=== PATIENT | female | born 1955 | race Caucasian/White ===

== ENCOUNTER 2024-02-18 16:33 | Emergency (ER) | payer MEDICARE, SELFPAY ==
--- NOTE | ~2024-02-18 | XR_ITS ---
EXAMINATION: XR CHEST CLINICAL INFORMATION: Chest pain. COMPARISON: October 19, 2013. TECHNIQUE: Frontal view of the chest was obtained. FINDINGS: No significant abnormality is noted involving the heart, lungs, mediastinum, bony thorax or soft tissues. XR/XR chest 1V IMPRESSION: Unremarkable examination. Electronically signed by: Bobby Layne MD 02/18/2024 11:15 PM EDT RP
[2024-02-18 16:42] VITALS: BP 130/70; PULSE 75; RESP 16; TEMP 35.7; O2SAT 97; BMI 29.7
--- NOTE | 2024-02-18 16:44 | ECG_ITS ---
Test Reason : CHEST PAIN Blood Pressure : / mmHG Vent. Rate : 073 BPM Atrial Rate : 073 BPM P-R Int : 172 ms QRS Dur : 084 ms QT Int : 398 ms P-R-T Axes : 034 -09 -01 degrees QTc Int : 438 ms Normal sinus rhythm Minimal voltage criteria for LVH, may be normal variant ( R in aVL ) Borderline ECG When compared with ECG of 19-OCT-2013 21:01, No significant change was found Referred By: Slick Andino Electronically Signed By:GANESH CONKLIN
--- NOTE | 2024-02-18 16:46 | ED_ITS ---
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 She states it hurts to move and touch the area. No recent infections or colds. It is worse with movement and touching the area. No swelling or rash. MD complaint: chest wall pain Onset (ago): month(s) (1) Location: chest Radiation: non-radiation Severity: moderate Quality: aching Pain Consistency: intermittent Relieving factors: immobilization Exacerbating factors: movement and other (palpations) Associated symptoms: denies other symptoms Treatments prior to arrival: other Related Data Previous Rx's ?Medication ?Instructions ?Recorded lidocaine 5 % topical patch 1 patch topical DAILY #30 ea 02/18/24 (Tridacaine) Allergies Allergy/AdvReac Type Severity Reaction Status Date / Time Sulfa (Sulfonamide Allergy Intermediate RASH Verified 02/18/24 16:46 Antibiotics) [SULFA(SULFONAMIDE ANTIBIOTICS)] ondansetron [From ZOFRAN] Allergy Mild SHAKING Verified 02/18/24 16:46 From COMPAZINE Allergy Unknown UNKNOWN Uncoded 02/18/24 16:46 STEROID INJECTION Allergy Unknown UNKNOWN Uncoded 02/18/24 16:46 Review of Systems 2 Review of Systems: Constitutional : No Weight loss, No Fever, No Chills ENT/Mouth : No sore throat, No Rhinorrhea Eyes: No Eye Pain, No Swelling Cardiovascular : pos Chest Pain, no SOB, no Dyspnea on Exertion, No Orthopnea, No Edema, No Palpitations Respiratory : No Cough, No Sputum Gastrointestinal : no Nausea, No Vomiting, No Diarrhea, No abdominal Pain, No Hematochezia, No Melena Genitourinary : No Dysuria, No Urinary Frequency Musculoskeletal : No joint pain, No Myalgias, No Joint Swelling Skin : No Skin Lesions, No rash Neuro : No Weakness, No Numbness, No Dizziness, No Headache Psych : No Anxiety/Panic, No Depression All other systems reviewed and are negative [facility] Past Medical History Attestation statement: The following information was validated with the patient. Source: old records reviewed Medical History Allergies Social History Social History Smoked in Last 30 Days: No Use of substances other than those prescribed or required for medical reasons: No Advance Directives: No Advance Directives Information Provided: No Do you have a plan to hurt others: No Plan Physical Exam ED Vital Signs: Vital Signs - 24 hr 02/18/24 16:42 02/18/24 21:05 02/18/24 21:49 Temperature 96.2 F L 98.3 F 97.6 F Pulse Rate 75 76 64 Respiratory Rate 16 16 16 Blood Pressure 130/70 125/80 117/75 Pulse Oximetry 97 98 97 Oxygen Delivery Method Room Air Room Air Room Air 02/18/24 21:50 Temperature 97.6 F Pulse Rate 64 Respiratory Rate 16 Blood Pressure 117/75 Pulse Oximetry 97 Oxygen Delivery Method Room Air BMI result Body Mass Index 29.7 Appearance: Alert. Oriented X3. No acute distress. Eyes: Pupils equal, round and reactive to light. ENT: Pharynx normal. Neck: Normal inspection. Neck supple. CVS: Normal heart rate and rhythm. Pulses normal. Chest: ttp along anterior chest wall reproduces pain Respiratory: No respiratory distress. Breath sounds normal. Abdomen: Soft and nontender. Skin: Skin warm and dry. Normal skin color. Normal skin turgor. Extremities: No lower extremity edema. No calf ttp Neuro: Oriented X 3. No motor deficit. No sensory deficit. Course Course Course Narrative: RME: Done by MILO Ruiz. 68-year-old female presents to ED for chest wall pain that is worse on movement of upper extremity and torso. Patient does a lot of upper extremity work and turning of upper extremity due to scalp to work. Patient denies any pleurisy, leg swelling, calf pain, coughing up blood, fever, or chills. Physical exam negative for lower extremity swelling, pitting edema, or calf pain. Positive chest wall tenderness on palpation and movement of torso and upper extremities. EKG labs x-ray ordered. Medications Administered Discontinued Medications Generic Name Dose Route Start Last Admin Trade Name Yecenia PRN Reason Stop Dose Admin Lidocaine 1 patch 02/18/24 21:30 02/18/24 21:41 Lidocaine 4 % Patch Adh..Patch TRANSDERMA 02/18/24 21:31 1 patch ONCE ONE Administration Protocol Medical Decision Making Medical Decision Making [facility] Narrative: 68 yo female with no sig PMH or risk factors for CAD reported here with chest wall injury and reproduceable chest wall pain at this time will need basic labs, EKG, and chest xray to evaluate for injury will start on pain patches. I do not suspect ACS, VTE, dissection she has localized reproduceable chest wall pain after injury. She has no resp distress or concern for infection. Differential Diagnosis Differential Diagnoses: The differential diagnosis associated with the presentation includes chest wall strain, rib contusion, rib fracture Admission/Observation Consideration of admission/observation: Escalation of care including admission/observation considered can be managed conservatively as outpatient Lab Data [facility] Lab Attestation statement: I reviewed the patient's lab results. 02/18/24 17:09 02/18/24 17:09 Labs: Lab Results 02/18/24 02/18/24 02/18/24 Range/Units 17:09 18:05 19:44 WBC 5.9 (4.8-10.8) X10*3/uL RBC 4.56 (4.20-5.50) X10*6/uL Hgb 13.9 (12.0-16.0) g/dl Hct 41.3 (37.0-47.0) % MCV 90.6 (80.0-98.0) fL MCH 30.5 (27.0-33.0) pg MCHC 33.7 (31.0-35.0) g/dl RDW 13.1 (11.0-16.0) % Plt Count 137 L (160-400) X10*3/uL MPV 11.5 (9.4-12.3) fL Immature Gran % (Auto) 0.3 (0.0-0.4) % Neut % (Auto) 53.8 (45-73) % Lymph % (Auto) 34.6 (20-40) % Rush % (Auto) 9.1 (2-11) % Eos % (Auto) 1.7 (0-4) % Baso % (Auto) 0.5 (0-2) % Lymph # (Auto) 2.1 (1.2-4.9) X10*3/uL Rush # (Auto) 0.5 (0.1-1.2) X10*3/uL Eos # (Auto) 0.1 (0.0-0.4) X10*3/uL Baso # (Auto) 0.0 (0.0-0.2) X10*3/uL Abs Immat Gran (auto) 0.02 (0.00-0.03) X10*3/uL Absolute Neuts (auto) 3.2 (2.0-8.3) x10*3/uL Absolute Nucleated RBC 0.000 (0.0-0.012) X10*3/uL Nucleated RBC % (auto) 0.0 (0.0-0.2) /100WBC PT 9.8 L (10.9-12.4) SEC INR 0.8 L (0.9-1.1) APTT 28.1 (26.0-36.8) SEC Sodium 140 (135-145) mmol/L Potassium 4.0 (3.3-5.1) mmol/L Chloride 110 H (96-108) mmol/L Carbon Dioxide 22 (22-29) mmol/L Anion Gap 12 (12-20) BUN 20 H (9-16) mg/dL Creatinine 0.86 (0.5-1.4) mg/dL Estim Creat Clear Calc 65.7 Estimated GFR > 60 Random Glucose 135 H (60-115) mg/dL Calcium 11.0 H (8.4-10.2) mg/dL Total Bilirubin 0.3 (0.0-1.0) mg/dL AST 19 (5-31) U/L ALT 18 (0-31) U/L Alkaline Phosphatase 86 (39-117) U/L Troponin I High Sens < 2.7 < 2.7 (<3.5-17.0) ng/L B-Natriuretic Peptide < 10 (<100) pg/mL Total Protein 6.9 (6.5-8.0) g/dL Albumin 4.3 (3.5-5.0) g/dL Independent Interpretation I performed an independent interpretation of an: EKG and Plain X-Ray Interpretation: Rate: 73 Rhythm: NSR [place]: left, LVH Normal P waves. Normal ABY. Normal QRS complex. ST T wave : normal no AV qTC: 438 prior studies: no acute ischemia The study has been interpreted contemporaneously by me. . Radiology Impression Discussion of test interpretation with radiology: I have reviewed the radiologist's reading. Discharge Plan Discharge Clinical Impression: Strain of chest wall Patient Disposition: Home, Self-Care Instructions: Muscle Strain (ED), Chest Wall Pain (ED) Additional Instructions: will call you with abnormal chest xray result return for any worsening symptoms or things such as fever, cough with sputum production increase in trouble breathing or any other concerns please take it easy for the next two weeks and limit lifting to 10lbs Prescriptions: New lidocaine [Tridacaine] 5 % adhesive patch,medicated 1 patch topical DAILY Qty: 30 0RF Rx Instructions: leave on most painful area for up to 12 hrs Interventions: ED Discharge Assessment Last Done: 02/18/24 21:50 Discharge Date/Time: 02/18/24 21:53 Print Language: Slovak
[2024-02-18 17:27] LABS: Hemoglobin 13.9 g/dl (12.0-16.0); Mean Corpuscular HGB Conc 33.7 g/dl (31.0-35.0); PLT CLUMP 1; Red Cell Distribution Width 13.1 % (11.0-16.0); SCAN SMEAR FLAG 1
[2024-02-18 17:28] LABS: Basophils Percent Auto 0.5 % (0-2); Eosinophils Absolute Auto 0.1 X10*3/uL (0.0-0.4); Eosinophils Percent Auto 1.7 % (0-4); Hematocrit 41.3 % (37.0-47.0); Imm Gran Abs Auto 0.02 X10*3/uL (0.00-0.03); Imm Gran Pct Auto 0.3 % (0.0-0.4); Lymphocytes Absolute Auto 2.1 X10*3/uL (1.2-4.9); Lymphocytes Percent Auto 34.6 % (20-40); Mean Corpuscular Hemoglobin 30.5 pg (27.0-33.0); Mean Corpuscular Volume 90.6 fL (80.0-98.0); Mean Platelet Volume 11.5 fL (9.4-12.3); Monocytes Absolute Auto 0.5 X10*3/uL (0.1-1.2); Monocytes Percent Auto 9.1 % (2-11); Neutrophils Absolute Auto 3.2 x10*3/uL (2.0-8.3); Neutrophils Percent Auto 53.8 % (45-73); Red Blood Count 4.56 X10*6/uL (4.20-5.50)
[2024-02-18 17:32] LABS: MANUAL DIFF FLAG NO; Platelet Count 137 X10*3/uL (160-400); White Blood Count 5.9 X10*3/uL (4.8-10.8)
[2024-02-18 17:37] LABS: Alanine Aminotransferase 18 U/L (0-31); Albumin Level 4.3 g/dL (3.5-5.0); Alkaline Phosphatase 86 U/L (39-117); Anion Gap 12 (12-20); Aspartate Amino Transferase 19 U/L (5-31); Bilirubin Total 0.3 mg/dL (0.0-1.0); Blood Urea Nitrogen 20 mg/dL (9-16); Carbon Dioxide 22 mmol/L (22-29); Chloride 110 mmol/L (96-108); Creatinine Clr Calc Pharmacy 65.7; Estimated Glomerular Filt Rate > 60; Glucose Random 135 mg/dL (60-115); Sodium 140 mmol/L (135-145); Total Protein 6.9 g/dL (6.5-8.0)
[2024-02-18 17:42] LABS: B Type Natriuretic Peptide < 10 pg/mL (<100)
[2024-02-18 17:52] LABS: Troponin-I High Sensitivity < 2.7 ng/L (<3.5-17.0)
[2024-02-18 18:20] LABS: INTERNATIONAL NORM RATIO 0.8 (0.9-1.1); Prothrombin Time 9.8 SEC (10.9-12.4)
[2024-02-18 18:23] LABS: Partial Thromboplastin Time 28.1 SEC (26.0-36.8)
[2024-02-18 20:22] LABS: Troponin-I High Sensitivity < 2.7 ng/L (<3.5-17.0)
[2024-02-18 21:05] VITALS: BP 125/80; PULSE 76; RESP 16; TEMP 36.8; O2SAT 98
[2024-02-18] MEDS: Lidocaine 4 % Patch ADH..PATCH 1 PATCH TRANSDERMA (21:41)
[2024-02-18 21:49] VITALS: BP 117/75; PULSE 64; RESP 16; TEMP 36.4; O2SAT 97
[2024-02-18 21:50] VITALS: BP 117/75; PULSE 64; RESP 16; TEMP 36.4; O2SAT 97
== END 2024-02-18 21:53 | disposition home or self-care (01) ==
PROVIDERS: Physician Assistant; Emergency Provider Emergency Medicine; PCP Nurse Practitioner Family
DX: R07.89 Other chest pain (principal); R06.02 Shortness of breath; Z79.899 Other long term (current) drug therapy
CPT/HCPCS: 36415; 71045; 80053; 83880; 84484; 85025; 85610; 85730; 93005; 99283; 99285

== ENCOUNTER 2024-02-20 00:56 | Emergency (ER) | payer MEDICARE, SELFPAY ==
[2024-02-20 00:59] VITALS: BP 129/79; PULSE 74; RESP 18; TEMP 37.1; O2SAT 97; BMI 33.3
--- NOTE | 2024-02-20 01:10 | PC.NURSE ---
pt from home a&ox4, respirations even and unlabored. pt reporting being seen here yesterday for similar problem. pt reports increased musculoskeletal chest pain, pt reports 1 week prior she had been moving something heavy and reports she thinks this is what caused it. pt reports she was discharged with lidocaine patches which did not work and now she is reporting worsening pain and unable to get in bed. upon pt entering room, pt shouting in pain when sitting.
--- NOTE | 2024-02-20 02:28 | ED_ITS ---
HPI - General Adult General Chief complaint: General Medical Stated complaint: muscle/chest discomfort was in ER yesterday Time Seen by Provider: 02/20/24 02:28 Source: patient Mode of arrival: ambulatory Limitations: no limitations History of Present Illness ED Provider: Dr. Colin HPI narrative: Patient states that she injured her chest moving her sculptures around. She was seen in the ED 2 days ago and had a complete cardiac work up. She states that every time she moves her sternum hurts more. she is very anxious. Related Data Previous Rx's ?Medication ?Instructions ?Recorded lidocaine 5 % topical patch 1 patch topical DAILY #30 ea 02/18/24 (Tridacaine) gabapentin 100 mg capsule 100 mg PO TID #30 caps 02/20/24 Allergies Allergy/AdvReac Type Severity Reaction Status Date / Time Sulfa (Sulfonamide Allergy Intermediate RASH Verified 02/20/24 01:02 Antibiotics) [SULFA(SULFONAMIDE ANTIBIOTICS)] ondansetron [From ZOFRAN] Allergy Mild SHAKING Verified 02/20/24 01:02 From COMPAZINE Allergy Unknown UNKNOWN Uncoded 02/20/24 01:02 STEROID INJECTION Allergy Unknown UNKNOWN Uncoded 02/20/24 01:02 Review of Systems Review of Systems: Yes all other systems are reviewed and are negative Neurologic: Denies Sensory deficit (Neuro) PMF Past Medical History Medical History Allergies Social History Social History Smoked in Last 30 Days: No Use of substances other than those prescribed or required for medical reasons: No Advance Directives: No Advance Directives Information Provided: Yes Do you have a plan to hurt others: No Plan Physical Exam ED Vital Signs: Vital Signs - 24 hr 02/20/24 00:59 Temperature 98.7 F Pulse Rate 74 Respiratory Rate 18 Blood Pressure 129/79 Pulse Oximetry 97 Oxygen Delivery Method Room Air BMI result Body Mass Index 33.3 Const Other: anxious female, shakey Nutritional Appearance: average body habitus Orientation/consciousness: oriented to person and patient oriented x3 Limitations: no limitations HENMT Head: Yes normal to inspection Ears: external ears normal General nose exam: Normal external nose present Mouth: Normal oral and palatal mucosa present and oropharynx normal Throat: Yes posterior oropharynx normal Eyes General: appearance normal, both eyes and all related structures Neck Neck: Yes normal visual inspection Chest Other: sternal tenderness Chest palpation & inspection: normal inspection of the chest Resp Auscultation: clear to auscultation bilaterally Cardio Jugular venous distension: no JVD Rate: regular rate Rhythm: regular rhythm Heart sounds: S1 normal heart sound present and S2 normal heart sound present GI Inspection: Yes normal to inspection Palpation (GI): Soft to palpation, nontender and No hepatosplenomegaly present Auscultation: normal bowel sounds General: Yes no CVA tenderness Back/Spine/Pelvis Back: no CVA tenderness Skin General skin exam: no rashes or lesions noted Neuro General: oriented to person and patient oriented x3 Cranial nerves: Yes CN's II-XII intact bilaterally Motor exam (neuro): 5/5 motor strength present throughout Sensory Exam: No Sensory deficit (Neuro) Extrem General: Yes normal to inspection Psych Appearance: grossly normal Course Reevaluation(s) Reevaluation #1: patient with complete cardiac workup yesterday, with continued pain despite lidocaine patches, will try patient on gabapentin Time: 02:42 Medical Decision Making Differential Diagnosis Differential Diagnoses: The differential diagnosis associated with the presentation includes (sternal pain, costrochondritis, anxiety) Tests considered The following testing was considered but not selected: Patient had imaging 2 days ago will not repeat Prescription Management I considered prescription management with: Antibiotic (no evidence of pneumonia) Discharge Plan Discharge Clinical Impression: Acute costochondritis Patient Disposition: Home, Self-Care Instructions: Costochondritis (ED) Prescriptions: New gabapentin 100 mg capsule 100 mg PO TID Qty: 30 0RF No Action lidocaine [Tridacaine] 5 % adhesive patch,medicated 1 patch topical DAILY Qty: 30 0RF Rx Instructions: leave on most painful area for up to 12 hrs Referrals: Nupur Sabillon NP [Primary Care Provider] - 3 days Print Language: Faroese
[2024-02-20 02:55] VITALS: BP 107/72; PULSE 74; RESP 16; TEMP 36.7; O2SAT 96
[2024-02-20] MEDS: Gabapentin 100 MG CAPSULE PO (02:59)
[2024-02-20 03:11] VITALS: BP 107/72; PULSE 74; RESP 16; TEMP 36.7; O2SAT 96
== END 2024-02-20 03:11 | disposition home or self-care (01) ==
PROVIDERS: Emergency Provider Emergency Medicine; PCP Nurse Practitioner Family
DX: M94.0 Chondrocostal junction syndrome [Tietze] (principal); F41.9 Anxiety disorder, unspecified
CPT/HCPCS: 99283; 99284